=== PATIENT | female | born 1995 | race African-American/Black ===

== ENCOUNTER 2017-12-21 17:16 | Emergency (ER) | payer OTHER ==
[~2017-12-21] VITALS: Wt 93.0 kg
--- NOTE | ~2017-12-21 | EKG ---
[place], [place] ELECTROCARDIOGRAM REPORT NAME: VIGNESH ARCE UNIT #: [id number] ROOM: DOCTOR: YAEL DRAFT REPORT BIRTHDATE: [birth year] [facility] Test Date: 2017-12-21 Test Time: 18:34:53 Pat Name: VIGNESH ARCE Department: ER Room: 20 Gender: F [employer] Project Manager: EKG.MT : 1995 Requested By: DANNA CARUSO Order Number: [id number] Reading MD: Mohsen Alston MD Measurements Intervals [place] Rate: 75 P: 41 TX: 126 QRS: 79 QRSD: 84 T: 60 QT: 334 QTc: 373 Interpretive Statements Sinus rhythm Baseline wander in lead(s) II Electronically Signed On 12-22-2017 8:43:46 PDT by Mohsen Alston MD CM:EKGRPT:ELECTROCARDIOGRAM REPORT [id number] DANNA CONLEY DRAFT REPORT DANNA CHICAS
[~2017-12-21 17:16] MED LIST: BACTRIM DS 8001 TA1 PO; BIRTH CONTROL1 EACH PO; FLEXERIL5 MG PO; HYDROCODONE BIT1 T11 PO; IRON50 MG PO; LIDEX0.05% T; MACROBID100 M1 PO; MOTRIN800 MG PO; NKHM; NORFLEX100 MG PO; PHENERGAN25 M1 PO; PRENAVITE1 TA4 PO; ZITHROMAX Z PA250 MG PO; ZITHROMAX Z-PA250 MG PO; ZOFRAN ODT4 MG SL; [UNRECOGNIZED DRUG - OTHER]
[2017-12-21 18:36] LABS: BASO # 0.1 10*3/uL (0.0-0.1); BASO % 0.6 % (0.0-1.0); EOS # 0.3 10*3/uL (0.0-0.4); EOS % 3.2 % (1.0-4.0); HEMATOCRIT 36.8 % (37.0-47.0); HEMOGLOBIN 11.9 g/dl (12.0-16.0); LYMPH # 4.1 10*3/uL (1.3-4.4); LYMPH % 42.2 % (27.0-41.0); MEAN CELL VOLUME 87.6 fl (81.0-99.0); MEAN CORPUSCULAR HGB 28.3 pg (27.0-31.0); MEAN CORPUSCULAR HGB CONC 32.3 g/dl (33.0-37.0); MEAN PLATELET VOLUME 9.4 fl (9.6-12.3); MONO # 0.4 10*3/uL (0.1-1.0); MONO % 3.9 % (3.0-9.0); NEUT # 4.8 10*3/uL (2.3-7.9); NEUT % 49.9 % (47.0-73.0); PLATELET COUNT AUTOMATED 332 10*3/uL (130-400); RED CELL DISTRI WIDTH 15.2 % (0-14.5); WHITE BLOOD COUNT 9.6 10*3/uL (4.8-10.8)
[2017-12-21 18:47] LABS: ACT PARTIAL THROMBO TIME 24.3 SECONDS (20.8-31.5); INTERNATIONAL NORM RATIO 1.1 (2.0-3.5)
[2017-12-21 18:52] LABS: ALBUMIN 3.5 gm/dl (3.1-4.5); ALKALINE PHOSPHATASE 55 U/L (45-117); BUN 15 mg/dl (7-24); CHLORIDE 107 mmol/L (98-107); LIPASE 208 U/L (73-393); POTASSIUM 3.9 mmol/L (3.5-5.1); SGOT/AST 11 IU/L (3-35); SGPT/ALT 15 U/L (12-78); SODIUM 139 mmol/L (136-145); TOTAL PROTEIN 7.2 gm/dL (6.4-8.2)
[2017-12-21 18:57] LABS: TROPONIN I < 0.015 ng/ml (<0.045)
[2017-12-21] MEDS ORDERED: IBUPROFEN600 MG PO (19:34)
== END 2017-12-21 20:02 | disposition home or self-care (01) ==
LOC: ED 17:16
PROVIDERS: Physician Assistant
DX: R09.1 Pleurisy (principal); F17.200 Nicotine dependence, unspecified, uncomplicated

== ENCOUNTER 2018-11-09 13:00 | Emergency (ER) | payer OTHER ==
[~2018-11-09] VITALS: Ht 177.8 cm; Wt 95.3 kg
[~2018-11-09 13:00] MED LIST changes: +IBUPROFEN600 MG PO
[2018-11-09 13:24] LABS: BASO # 0.1 10*3/uL (0.0-0.1); BASO % 0.6 % (0.0-1.0); EOS # 0.3 10*3/uL (0.0-0.4); EOS % 3.8 % (1.0-4.0); HEMATOCRIT 37.6 % (37.0-47.0); HEMOGLOBIN 11.8 g/dl (12.0-16.0); LYMPH # 3.7 10*3/uL (1.3-4.4); LYMPH % 44.5 % (27.0-41.0); MEAN CELL VOLUME 90.6 fl (81.0-99.0); MEAN CORPUSCULAR HGB 28.4 pg (27.0-31.0); MEAN CORPUSCULAR HGB CONC 31.4 g/dl (33.0-37.0); MEAN PLATELET VOLUME 8.9 fl (9.6-12.3); MONO # 0.5 10*3/uL (0.1-1.0); MONO % 5.8 % (3.0-9.0); NEUT # 3.7 10*3/uL (2.3-7.9); NEUT % 45.2 % (47.0-73.0); PLATELET COUNT AUTOMATED 356 10*3/uL (130-400); RED BLOOD COUNT 4.15 10*6/uL (4.10-5.10); RED CELL DISTRI WIDTH 14.3 % (0-14.5); WHITE BLOOD COUNT 8.3 10*3/uL (4.8-10.8)
[2018-11-09 13:38] LABS: BILIRUBIN NEGATIVE (NEGATIVE); BLOOD 3+ (NEGATIVE); CLARITY CLOUDY (CLEAR); COLOR YELLOW (YELLOW); GLUCOSE NEGATIVE (NEGATIVE); KETONE NEGATIVE (NEGATIVE); LEUKO ESTERASE NEGATIVE (NEGATIVE); NITRITE POSITIVE (NEGATIVE); SPECIFIC GRAVITY 1.025 (1.005-1.030)
[2018-11-09 13:40] LABS: ALBUMIN 3.7 gm/dl (3.1-4.5); ALKALINE PHOSPHATASE 63 U/L (45-117); BUN 16 mg/dl (7-24); CHLORIDE 112 mmol/L (98-107); CREATININE 0.87 mg/dL (0.55-1.02); POTASSIUM 4.5 mmol/L (3.5-5.1); SGOT/AST 9 IU/L (3-35); SGPT/ALT 11 U/L (12-78); SODIUM 144 mmol/L (136-145); TOTAL PROTEIN 7.8 gm/dL (6.4-8.2)
[2018-11-09 13:53] LABS: BACTERIA 3+
[2018-11-09] MEDS ORDERED: CEFUROXIME AXE500 MG PO (14:48)
[2018-11-09] MEDS ORDERED: NAPROSYN500 MG PO (14:48)
[2018-11-09 15:17] LABS: URINE AMPHETAMINES < 1000 (1000ng/ml); URINE BARBITURATES < 200 (200ng/ml); URINE BENZODIAZEPINES < 200 (200ng/ml); URINE CANNABINOIDS (THC) < 50 (50ng/ml); URINE COCAINE < 300 (300ng/ml); URINE METHADONE < 300 (300ng/ml); URINE OPIATES < 300 (300ng/ml)
[2018-11-09 15:19] LABS: URINE PHENCYCLIDINE < 25 (25ng/ml)
== END 2018-11-09 15:30 | disposition home or self-care (01) ==
LOC: ED 13:00
PROVIDERS: Nurse Practitioner Family
DX: N39.0 Urinary tract infection, site not specified (principal); N92.0 Excessive and frequent menstruation with regular cycle

== ENCOUNTER → 2020-03-14 | Outpatient (CLI) | payer OTHER ==
[~2020-03-14] MED LIST changes: +CEFUROXIME AXE500 MG PO; +NAPROSYN500 MG PO
== END | disposition home or self-care (01) ==
LOC: COVID19 11:14
PROVIDERS: ATTEND Internal Medicine
DX: Z20.828 Contact with and (suspected) exposure to other viral communicable diseases (principal)

== ENCOUNTER 2021-12-23 19:30 | Emergency (ER) | payer OTHER ==
[2021-12-23] MEDS ORDERED: NAPROSYN500 MG PO (22:24)
[2021-12-23] MEDS ORDERED: MEDROL DOSEPAK4 MG PO (22:24)
[2021-12-23] MEDS ORDERED: CYCLOBENZAPRINE5 M3 PO (22:24)
== END 2021-12-23 22:32 | disposition home or self-care (01) ==
LOC: ED 19:30
DX: M54.16 Radiculopathy, lumbar region (principal); Z98.890 Other specified postprocedural states

== ENCOUNTER 2022-01-07 14:44 | Emergency (ER) | payer OTHER ==
[~2022-01-07] VITALS: Ht 175.2 cm; Wt 108.9 kg
[~2022-01-07 14:44] MED LIST changes: +CYCLOBENZAPRINE5 M3 PO; +MEDROL DOSEPAK4 MG PO
== END 2022-01-07 16:54 | disposition left against medical advice (07) ==
LOC: ED 14:44
DX: M54.30 Sciatica, unspecified side (principal); Z53.21 Procedure and treatment not carried out due to patient leaving prior to being seen by health care provider

== ENCOUNTER 2022-01-12 02:41 | Emergency (ER) | payer OTHER ==
[~2022-01-12] VITALS: Ht 182.8 cm; Wt 99.8 kg
[2022-01-12 04:21] LABS: BASO # 0.1 10*3/uL (0.0-0.1); BASO % 0.6 % (0.0-1.0); EOS # 0.4 10*3/uL (0.0-0.4); HEMATOCRIT 40.9 % (37.0-47.0); LYMPH # 3.9 10*3/uL (1.3-4.4); MEAN CELL VOLUME 89.3 fl (81.0-99.0); MEAN CORPUSCULAR HGB 29.3 pg (27.0-31.0); MEAN CORPUSCULAR HGB CONC 32.8 g/dl (33.0-37.0); MEAN PLATELET VOLUME 8.9 fl (9.6-12.3); MONO # 0.5 10*3/uL (0.1-1.0); MONO % 5.4 % (3.0-9.0); NEUT % 44.8 % (47.0-73.0); PLATELET COUNT AUTOMATED 324 10*3/uL (130-400); RED BLOOD COUNT 4.58 10*6/uL (4.10-5.10); RED CELL DISTRI WIDTH 14.4 % (0-14.5); WHITE BLOOD COUNT 8.9 10*3/uL (4.8-10.8)
[2022-01-12 04:32] LABS: BUN 11 mg/dl (7-24); CHLORIDE 115 mmol/L (98-107); CREATININE 0.86 mg/dL (0.55-1.02); SODIUM 142 mmol/L (136-145)
[2022-01-12] MEDS ORDERED: MEDROL DOSEPAK4 MG PO (06:21)
[2022-01-12] MEDS ORDERED: ORPHENADRINE C100 M1 PO (06:21)
[2022-01-12] MEDS ORDERED: ULTRAM50 MG PO (06:21)
== END 2022-01-12 07:02 | disposition home or self-care (01) ==
LOC: ED 02:41
PROVIDERS: Emergency Medicine
DX: M51.36 Other intervertebral disc degeneration, lumbar region (principal); M48.02 Spinal stenosis, cervical region; M54.42 Lumbago with sciatica, left side; F17.200 Nicotine dependence, unspecified, uncomplicated; Z79.899 Other long term (current) drug therapy; Z98.890 Other specified postprocedural states

== ENCOUNTER 2022-11-04 08:39 | Emergency (ER) | payer OTHER ==
[~2022-11-04] VITALS: Ht 172.7 cm; Wt 99.8 kg
[~2022-11-04 08:39] MED LIST changes: +ORPHENADRINE C100 M1 PO; +ULTRAM50 MG PO
[2022-11-04 09:18] LABS: BILIRUBIN Negative (Negative); BLOOD 3+ (Negative); CLARITY Clear (Clear); COLOR Yellow (Yellow); GLUCOSE Negative (Negative); KETONE Negative (Negative); LEUKO ESTERASE 1+ (Negative); NITRITE Negative (Negative); PH 5.5 (4.5-8.0)
[2022-11-04 10:22] LABS: BASO % 0.4 % (0.0-1.0); EOS # 0.3 10*3/uL (0.0-0.4); EOS % 2.5 % (1.0-4.0); LYMPH # 2.8 10*3/uL (1.3-4.4); LYMPH % 27.9 % (27.0-41.0); MEAN CELL VOLUME 89.7 fl (81.0-99.0); MEAN CORPUSCULAR HGB 29.1 pg (27.0-31.0); MEAN CORPUSCULAR HGB CONC 32.4 g/dl (33.0-37.0); MONO # 0.4 10*3/uL (0.1-1.0); MONO % 4.2 % (3.0-9.0); NEUT # 6.4 10*3/uL (2.3-7.9); NEUT % 64.8 % (47.0-73.0); PLATELET COUNT AUTOMATED 322 10*3/uL (130-400); RED BLOOD COUNT 4.68 10*6/uL (4.10-5.10); RED CELL DISTRI WIDTH 13.4 % (0-14.5); WHITE BLOOD COUNT 9.9 10*3/uL (4.8-10.8)
[2022-11-04 11:02] LABS: ALKALINE PHOSPHATASE 66 U/L (46-116); BUN 16 mg/dl (9-23); CHLORIDE 108 mmol/L (98-107); POTASSIUM 3.8 mmol/L (3.4-5.1); SGPT/ALT 11 U/L (10-49); TOTAL PROTEIN 7.1 gm/dL (6.0-8.0)
== END 2022-11-04 10:36 | disposition home or self-care (01) ==
LOC: ED 08:39
PROVIDERS: Student in an Organized Health Care Education/Training Program
DX: K81.1 Chronic cholecystitis (principal); Z87.442 Personal history of urinary calculi; Z98.890 Other specified postprocedural states